=== PATIENT | male | born 1950 | race Caucasian/White ===

== ENCOUNTER 2017-08-12 06:10 | Day surgery (SDC) | payer MEDICARE, OTHER ==
[2017-08-11 14:45] LABS: BASOPHILS % (AUTO) 0.3 % (0-1); EOSINOPHILS # (AUTO) 0.3 X10'3 (0-0.9); EOSINOPHILS % (AUTO) 3.2 % (0-6); LYMPHOCYTES # (AUTO) 1.9 X10'3 (1.1-4.8); MEAN CORPUSCULAR HEMOGLOBIN 32.7 PG (27.0-31.0); MEAN CORPUSCULAR HGB CONC 35.8 % (33.0-36.5); MEAN CORPUSCULAR VOLUME 91.3 FL (78-98); MONOCYTES # (AUTO) 0.5 X10'3 (0-0.9); MONOCYTES % (AUTO) 6.1 % (2-12); NEUTROPHILS # (AUTO) 6.2 X10'3 (1.8-7.7); NEUTROPHILS % (AUTO) 69.4 % (42-75); PRE OP HEMATOCRIT 42.4 % (42.0-52.0); PRE OP HEMOGLOBIN 15.2 g/dL (14.0-17.9); PRE OP PLATELET COUNT 263 X10'3 (140-440); RED BLOOD COUNT 4.64 X10'6 (4.70-6.10); RED CELL DISTRIBUTION WIDTH 12.9 % (11.5-14.5)
[2017-08-11 14:55] LABS: ALBUMIN 3.1 G/DL (3.4-5.0); BLOOD UREA NITROGEN 17 MG/DL (7-18); BUN/CREATININE RATIO 18.9 (5.4-32.0); CALCIUM 9.2 MG/DL (8.5-10.1); CHLORIDE 103 MMOL/L (99-107); PRE OP ANION GAP 5 (8-16); PRE OP POTASSIUM 4.2 MMOL/L (3.4-5.1); PRE OP SODIUM 138 MMOL/L (135-145); TOTAL CARBON DIOXIDE 29.9 MMOL/L (24-32); eGFR 84 ML/MIN
[2017-08-11 14:56] LABS: PRE OP PROTIME 10.4 SECONDS (9.0-12.0)
[2017-08-11 15:05] LABS: PRE OP GLUCOSE 293 MG/DL (70-104)
[2017-08-12] VITALS (11 sets, daily range): BP systolic 141–192; BP diastolic 75–95
[~2017-08-12] VITALS: Ht 182.9 cm; Wt 82.8 kg
[~2017-08-12 06:10] MED LIST: CARV6.253 PO; CLOP75TA35 PO; GLIM4TAB79 PO; LISI10TA4 PO; OMEG500C PO
[2017-08-12] MEDS ORDERED: diphenhydrAMINE 25mg capsule PO PRN (06:35)
[2017-08-12] MEDS ORDERED: LORazepam 0.5 MG tablet PO PRN (06:35)
[2017-08-12] MEDS ORDERED: normal saline 1000ml 1,000 ML IV SCH (06:35)
[2017-08-12] MEDS ORDERED: CYAN-19 PO (06:40)
[2017-08-12] MEDS ORDERED: PIOG15TA8 PO (06:40)
[2017-08-12] MEDS ORDERED: TRAZ150T78 PO (06:40)
[2017-08-12] MEDS ORDERED: CITA20TA11 PO (06:40)
[2017-08-12] MEDS ORDERED: ASPI-1265 PO (06:40)
[2017-08-12] MEDS ORDERED: METF500T4 PO (06:40)
[2017-08-12] MEDS ORDERED: ATOR20TA66 PO (06:40)
[2017-08-12] MEDS ORDERED: midazolam 2 mg/2 ml injection ONE (07:08)
[2017-08-12] MEDS ORDERED: fentaNYL/PF 50MCG/1 ML 2ML syringe ONE (07:08)
[2017-08-12] MEDS ORDERED: iohexol 350MG/ML 100ml bottle IV ONE (07:09)
[2017-08-12] MEDS ORDERED: nitroGLYCERIN-Tridil 50MG/D5W 250 ML IV ONE (07:09)
[2017-08-12] MEDS ORDERED: heparin 1,000unit/ml 10ml vial 10 ML ONE (07:09)
[2017-08-12] MEDS ORDERED: iohexol 350 MG/ML 50ML vial IV ONE ×3 (07:09→08:04)
[2017-08-12] MEDS ORDERED: LIDOcaine 1%/PF (10mg/ml) 5ml vial ONE ×2 (07:09→08:06)
[2017-08-12] MEDS ORDERED: diltiazem 5mg/ml 5ml inj. IV ONE ×2 (07:49→07:50)
[2017-08-12] MEDS ORDERED: IOHEXOL 350 MG/ML 150 ML injection IV ONE (07:51)
[2017-08-12] MEDS ORDERED: hydrALAZINE 20mg/ml inj. IV ONE (08:36)
[2017-08-12 08:46] LABS: ISTAT HGB ART 12.6 g/dl (14.0-18.0); ISTAT Hct ART 37 %PCV (42-52); ISTAT Hct MIX 37 %PCV (42-52); ISTAT O2 SATURATION ARTERIAL 98 % (95-98); ISTAT O2 SATURATION MIX VENOUS 61 % (60-80); ISTAT SOURCE ART; ISTAT SOURCE MIX
== END 2017-08-12 13:55 | disposition home or self-care (01) ==
LOC: SSTAY O 06:10
PROVIDERS: ATTEND Internal Medicine Cardiovascular Disease
DX: I25.10 Atherosclerotic heart disease of native coronary artery without angina pectoris (principal); I25.2 Old myocardial infarction; E11.9 Type 2 diabetes mellitus without complications; I10 Essential (primary) hypertension; E78.5 Hyperlipidemia, unspecified; J44.9 Chronic obstructive pulmonary disease, unspecified; F17.210 Nicotine dependence, cigarettes, uncomplicated; M19.90 Unspecified osteoarthritis, unspecified site; Z95.5 Presence of coronary angioplasty implant and graft; Z79.01 Long term (current) use of anticoagulants
CPT/HCPCS: 36415; 75630; 80048; 82803; 82948; 85014; 85025; 85610; 85730; 93005; 93460; 99152; 99153; A6257; C1769; C1894; J0360; J1644; J2001; J2250; J3010; J3490; J7030; Q0163; Q9967; A4620

== ENCOUNTER 2019-03-24 05:49 | Day surgery (SDC) | payer MEDICARE, OTHER ==
[2019-03-23 13:16] LABS: BASOPHILS # (AUTO) 0.1 X10'3 (0-0.2); BASOPHILS % (AUTO) 0.9 % (0-1); EOSINOPHILS # (AUTO) 0.1 X10'3 (0-0.9); EOSINOPHILS % (AUTO) 1.8 % (0-6); HEMATOCRIT 45.7 % (42.0-52.0); HEMOGLOBIN 15.6 g/dl (14.0-17.9); LYMPHOCYTES # (AUTO) 1.2 X10'3 (1.1-4.8); LYMPHOCYTES % (AUTO) 15.3 % (21-51); MEAN CORPUSCULAR HEMOGLOBIN 31.6 PG (27.0-31.0); MEAN CORPUSCULAR VOLUME 92.8 FL (78-98); MEAN PLATELET VOLUME 8.7 FL (7.4-10.4); MONOCYTES # (AUTO) 0.7 X10'3 (0-0.9); MONOCYTES % (AUTO) 8.4 % (2-12); NEUTROPHILS # (AUTO) 5.7 X10'3 (1.8-7.7); NEUTROPHILS % (AUTO) 73.6 % (42-75); PLATELET COUNT 158 X10'3 (140-440); RED BLOOD COUNT 4.93 X10'6 (4.70-6.10); RED CELL DISTRIBUTION WIDTH 14.4 % (11.5-14.5); WHITE BLOOD COUNT 7.8 X10'3 (4.5-11.0)
[2019-03-23 13:29] LABS: PARTIAL THROMBOPLASTIN TIME 27 SECONDS (22-32)
[2019-03-23 13:45] LABS: ALBUMIN 2.1 G/DL (3.4-5.0); ANION GAP 5 (8-16); BLOOD UREA NITROGEN 16 MG/DL (7-18); BUN/CREATININE RATIO 16.8 (5.4-32.0); CALCIUM 8.5 MG/DL (8.5-10.1); CHLORIDE 102 MMOL/L (99-107); CREATININE 0.95 MG/DL (0.60-1.10); GLUCOSE 275 MG/DL (70-104); POTASSIUM 3.8 MMOL/L (3.5-5.1); SODIUM 138 MMOL/L (135-145); TOTAL CARBON DIOXIDE 31.4 MMOL/L (24-32); eGFR 78 ML/MIN
[2019-03-24] VITALS (12 sets, daily range): BP systolic 128–172; BP diastolic 84–119
[~2019-03-24] VITALS: Ht 182.9 cm; Wt 80.5 kg
[~2019-03-24 05:49] MED LIST changes: +ASPI-1265 PO; +ATOR20TA66 PO; +CITA20TA28 PO; +CYAN-51 PO; +GLIM4TAB4 PO; -GLIM4TAB79 PO; +METF-436 PO; -OMEG500C PO; +PIOG15TA8 PO; +TRAZ150T78 PO
[2019-03-24] MEDS ORDERED: normal saline 1,000 ML IV SCH (06:10)
[2019-03-24] MEDS ORDERED: LORazepam 0.5 MG tablet PO PRN (06:10)
[2019-03-24] MEDS ORDERED: diphenhydrAMINE 25mg capsule PO PRN (06:10)
[2019-03-24] MEDS ORDERED: HYDR12.55 PO (07:06)
[2019-03-24] MEDS ORDERED: APIX5TAB3 PO (07:06)
[2019-03-24] MEDS ORDERED: verapamil 2.5 mg/ml inj IV ONE (07:26)
[2019-03-24] MEDS ORDERED: heparin 1,000unit/ml 10ml vial 10 ML ONE ×2 (07:27→09:45)
[2019-03-24] MEDS ORDERED: fentaNYL/PF 50MCG/1 ML 2ML syringe ONE (07:27)
[2019-03-24] MEDS ORDERED: midazolam 2 mg/2 ml injection ONE (07:27)
[2019-03-24] MEDS ORDERED: nitroGLYCERIN-Tridil 50MG/D5W 250 ML IV ONE (07:27)
[2019-03-24] MEDS ORDERED: iohexol 350 MG/ML 50ML vial IV ONE (07:27)
[2019-03-24] MEDS ORDERED: iohexol 350MG/ML 100ml bottle IV ONE ×2 (07:27→09:00)
[2019-03-24] MEDS ORDERED: LIDOcaine 1% (10mg/ml)w/preservative injection 20ml MDV ONE (07:36)
[2019-03-24] MEDS ORDERED: metoprolol tartrate 1mg/ml inj IV ONE (08:29)
[2019-03-24 08:56] LABS: ISTAT Hct MIX 41 %PCV (42-52); ISTAT O2 SATURATION MIX VENOUS 60 % (60-80); ISTAT SOURCE MIX
[2019-03-24 08:56] LABS: ISTAT HGB ART 14.6 g/dl (14.0-18.0); ISTAT Hct ART 43 %PCV (42-52); ISTAT O2 SATURATION ARTERIAL 89 % (95-98); ISTAT SOURCE ART
[2019-03-24] MEDS ORDERED: heparin 25,000 UNIT/250ml bag 250 ML IV ONE (09:00)
[2019-03-24] MEDS ORDERED: clopidogrel 300mg tablet ONE (09:38)
[2019-03-24] MEDS ORDERED: normal saline 1000ml 1,000 ML IV SCH (10:25)
[2019-03-24] MEDS ORDERED: furosemide 20 MG/2 ML vial IV ONE (13:00)
[2019-03-24] MEDS ORDERED: potassium Cl 20 mEq SR tablet PO ONE (13:00)
== END 2019-03-24 16:55 | disposition home or self-care (01) ==
LOC: SSTAY O 05:49
PROVIDERS: ATTEND Internal Medicine Cardiovascular Disease
DX: R93.1 Abnormal findings on diagnostic imaging of heart and coronary circulation (principal); I25.10 Atherosclerotic heart disease of native coronary artery without angina pectoris; J44.9 Chronic obstructive pulmonary disease, unspecified; E11.9 Type 2 diabetes mellitus without complications; M19.90 Unspecified osteoarthritis, unspecified site; I48.3 Typical atrial flutter; I42.0 Dilated cardiomyopathy; I11.0 Hypertensive heart disease with heart failure; I50.22 Chronic systolic (congestive) heart failure; E78.49 Other hyperlipidemia; I25.2 Old myocardial infarction; Z95.5 Presence of coronary angioplasty implant and graft; Z98.890 Other specified postprocedural states; F17.210 Nicotine dependence, cigarettes, uncomplicated; Z79.899 Other long term (current) drug therapy; Z79.84 Long term (current) use of oral hypoglycemic drugs; Z79.01 Long term (current) use of anticoagulants
CPT/HCPCS: 36415; 80048; 82803; 82948; 83880; 85014; 85025; 85347; 85610; 85730; 93005; 93460; 99152; 99153; C1725; C1769; C1874; C1892; C1894; C9600; J1644; J1940; J2001; J2250; J3010; J7030; Q0163; Q9967; 93458; A4620; A5120; J3490

== ENCOUNTER 2019-06-27 11:04 | Emergency (ER) | payer MEDICARE, OTHER ==
[~2019-06-27] VITALS: Ht 182.9 cm; Wt 92.5 kg
[~2019-06-27 11:04] MED LIST changes: +APIX5TAB3 PO; -CARV6.253 PO; -CITA20TA28 PO; -CLOP75TA35 PO; -CYAN-51 PO; +HYDR12.55 PO; -PIOG15TA8 PO
[2019-06-27 11:54] LABS: BASOPHILS # (AUTO) 0.1 X10'3 (0-0.2); BASOPHILS % (AUTO) 1.1 % (0-1); EOSINOPHILS # (AUTO) 0.1 X10'3 (0-0.9); EOSINOPHILS % (AUTO) 0.9 % (0-6); HEMATOCRIT 46.5 % (42.0-52.0); HEMOGLOBIN 15.5 g/dl (14.0-17.9); LYMPHOCYTES # (AUTO) 0.8 X10'3 (1.1-4.8); LYMPHOCYTES % (AUTO) 8.5 % (21-51); MEAN CORPUSCULAR HEMOGLOBIN 31.8 PG (27.0-31.0); MEAN CORPUSCULAR HGB CONC 33.3 g/dL (33.0-36.5); MEAN CORPUSCULAR VOLUME 95.3 FL (78-98); MEAN PLATELET VOLUME 9.3 FL (7.4-10.4); MONOCYTES # (AUTO) 0.8 X10'3 (0-0.9); MONOCYTES % (AUTO) 8.3 % (2-12); NEUTROPHILS # (AUTO) 7.6 X10'3 (1.8-7.7); NEUTROPHILS % (AUTO) 81.2 % (42-75); PLATELET COUNT 243 X10'3 (140-440); RED BLOOD COUNT 4.88 X10'6 (4.70-6.10); WHITE BLOOD COUNT 9.4 X10'3 (4.5-11.0)
[2019-06-27 12:07] LABS: ALANINE AMINOTRANSFERASE 23 U/L (12-78); ALBUMIN/GLOBULIN RATIO 0.5 (1.1-1.5); ALKALINE PHOSPHATASE 228 IU/L (46-116); ANION GAP 1 (8-16); ASPARTATE AMINO TRANSFERASE 23 U/L (10-37); BILIRUBIN,TOTAL 0.9 MG/DL (0.1-1.0); BLOOD UREA NITROGEN 24 MG/DL (7-18); BUN/CREATININE RATIO 20.7 (5.4-32.0); CALCIUM 8.8 MG/DL (8.5-10.1); CHLORIDE 101 MMOL/L (99-107); CREATININE 1.16 MG/DL (0.60-1.10); GLUCOSE 239 MG/DL (70-104); POTASSIUM 4.4 MMOL/L (3.5-5.1); SODIUM 136 MMOL/L (135-145); TOTAL CARBON DIOXIDE 34.2 MMOL/L (24-32); TOTAL PROTEIN 6.2 G/DL (6.4-8.2); eGFR 62 ML/MIN
[2019-06-27] MEDS ORDERED: potassium Cl 20 mEq SR tablet PO STA (13:06)
[2019-06-27] MEDS ORDERED: furosemide 10 MG/1 ML 10ml inj IV ONE (13:10)
[2019-06-27] MEDS ORDERED: ALPRAZolam 0.25mg tablet PO ONE (13:10)
[2019-06-27 14:39] LABS: CLARITY,URINE CLEAR (Clear); COLOR,URINE YELLOW (Yellow); GLUCOSE, URINE NEGATIVE (Neg); KETONES,URINE NEGATIVE (Neg); LEUKOCYTE ESTERASE ,URINE NEGATIVE (Neg); NITRITES, URINE NEGATIVE (Neg); OCCULT BLOOD,URINE SMALL (Neg); PROTEIN,URINE >=300 mg/dl (Neg); UROBILINOGEN,URINE 0.2 E.U/dL (0.2-1.0)
[2019-06-27 14:44] LABS: UA COLLECTION TYPE CLN CATCH MIDSTREAM
[2019-06-27 14:51] LABS: SQUAMOUS EPITHELIAL CELL,UR NONE SEEN /LPF (FEW); TRANSITIONAL EPI CELLS,URINE FEW /HPF
[2019-06-27] MEDS ORDERED: DOXY-327 PO (14:51)
[2019-06-27 14:52] LABS: BACTERIA,URINE NONE SEEN /HPF (Neg); MUCUS STRANDS NONE SEEN /LPF (Neg); RBC,URINE 0-2 /HPF (0-2); WBC,URINE 0-4 /HPF (0-4)
[2019-06-27 14:59] LABS: HYALINE CASTS 0-3 /LPF (NEGATIVE)
[2019-06-27 15:04] VITALS: BP 133/82
== END 2019-06-27 15:08 | disposition home or self-care (01) ==
LOC: ER 11:05
DX: J18.9 Pneumonia, unspecified organism (principal); I50.9 Heart failure, unspecified; Z79.82 Long term (current) use of aspirin; Z79.899 Other long term (current) drug therapy
CPT/HCPCS: 36415; 71045; 80053; 81001; 83880; 84484; 85025; 93005; 96374; 99284; J1940

== ENCOUNTER 2020-08-06 08:46 | Observation (INO) | payer MEDICARE, OTHER ==
[2020-08-03 12:09] LABS: BASOPHILS % (AUTO) 0.7 % (0-1); EOSINOPHILS # (AUTO) 0.2 X10'3 (0-0.9); EOSINOPHILS % (AUTO) 2.7 % (0-6); HEMATOCRIT 37.4 % (42.0-52.0); HEMOGLOBIN 11.9 g/dl (14.0-17.9); LYMPHOCYTES # (AUTO) 0.6 X10'3 (1.1-4.8); LYMPHOCYTES % (AUTO) 8.5 % (21-51); MEAN CORPUSCULAR HEMOGLOBIN 29.2 PG (27.0-31.0); MEAN CORPUSCULAR HGB CONC 31.7 g/dL (33.0-36.5); MEAN CORPUSCULAR VOLUME 92.2 FL (78-98); MEAN PLATELET VOLUME 9.5 FL (7.4-10.4); MONOCYTES # (AUTO) 0.8 X10'3 (0-0.9); MONOCYTES % (AUTO) 11.9 % (2-12); NEUTROPHILS % (AUTO) 76.2 % (42-75); PLATELET COUNT 157 X10'3 (140-440); RED BLOOD COUNT 4.06 X10'6 (4.70-6.10); RED CELL DISTRIBUTION WIDTH 18.8 % (11.5-14.5); WHITE BLOOD COUNT 6.5 X10'3 (4.5-11.0)
[2020-08-03 12:18] LABS: ALBUMIN 2.8 G/DL (3.4-5.0); ANION GAP 5 (8-16); BLOOD UREA NITROGEN 50 MG/DL (7-18); BUN/CREATININE RATIO 26.5 (5.4-32.0); CALCIUM 8.7 MG/DL (8.5-10.1); CHLORIDE 100 MMOL/L (99-107); CREATININE 1.89 MG/DL (0.60-1.10); GLUCOSE 171 MG/DL (70-104); POTASSIUM 3.3 MMOL/L (3.5-5.1); SODIUM 141 MMOL/L (135-145); TOTAL CARBON DIOXIDE 35.8 MMOL/L (24-32); eGFR 35 ML/MIN
[2020-08-03 12:21] LABS: PARTIAL THROMBOPLASTIN TIME 28 SECONDS (22-32)
[2020-08-03 12:43] LABS: ANISOCYTOSIS 2+; HYPOCHROMASIA 1+; PLATELET ESTIMATE NORMAL; STOMATOCYTES 1+
[2020-08-06] VITALS (15 sets, daily range): BP systolic 98–175; BP diastolic 52–116
[~2020-08-06] VITALS: Ht 182.9 cm; Wt 72.7 kg
[~2020-08-06 08:46] MED LIST changes: +DOXY-327 PO; -GLIM4TAB4 PO; +GLIM4TAB7 PO
[2020-08-06] MEDS ORDERED: normal saline 1000ml 1,000 ML IV SCH ×2 (09:15→17:35)
[2020-08-06] MEDS ORDERED: ceFAZolin 2gm in dextrose, iso 50 ML IV ONE ×2 (09:15→13:05)
[2020-08-06] MEDS ORDERED: diphenhydrAMINE 25mg capsule PO ONE (09:45)
[2020-08-06] MEDS ORDERED: LORazepam 0.5 MG tablet PO ONE (09:45)
[2020-08-06] MEDS ORDERED: DOBUTamine 2000 MCG/250ML BAG IV SCH ×2 (09:50→17:35)
[2020-08-06] MEDS ORDERED: sodium bicarbonate (8.4%) inj. 150 MEQ in dextrose 5%-water 1,000 ML IV ONE (09:55)
[2020-08-06] MEDS ORDERED: CLOP75TA15 PO (10:00)
[2020-08-06] MEDS ORDERED: SPIR25TA5 PO (10:00)
[2020-08-06] MEDS ORDERED: BENZ-16 PO (10:00)
[2020-08-06] MEDS ORDERED: FLO0.4C PO (10:00)
[2020-08-06] MEDS ORDERED: HYDR-3972 PO (10:00)
[2020-08-06] MEDS ORDERED: ATOR80TA PO (10:00)
[2020-08-06] MEDS ORDERED: METO50TA7 PO (10:00)
[2020-08-06] MEDS ORDERED: LISI-600 PO (10:00)
[2020-08-06] MEDS ORDERED: FURO-149 PO (10:00)
[2020-08-06] MEDS: acetylcysteine 200 MG/ml 4ml vial PO SCH ×2 (10:55→21:00)
[2020-08-06] MEDS ORDERED: LIDOcaine 1% W/epiNEPHrine 1:100,000 20ml vial ONE ×2 (11:25→13:27)
[2020-08-06] MEDS ORDERED: midazolam 2 mg/2 ml injection ONE ×2 (11:25→13:05)
[2020-08-06] MEDS ORDERED: ceFAZolin 1000mg inj ONE ×2 (11:25→13:05)
[2020-08-06] MEDS ORDERED: iohexol 350MG/ML 100ml bottle IV ONE (11:25)
[2020-08-06] MEDS ORDERED: fentaNYL/PF 50MCG/1 ML 2ML syringe ONE ×2 (11:25→13:05)
[2020-08-06] MEDS ORDERED: magnesium 2GM in 50ml NS 50 ML IV ONE (11:45)
[2020-08-06] MEDS ORDERED: iohexol 350 MG/ML 50ML vial IV ONE (13:05)
[2020-08-06] MEDS ORDERED: HYDROmorphone 1 mg/ml syringe ONE (14:14)
[2020-08-06] MEDS ORDERED: HYDROcodone/acetaminophen 10/325mg tab PO PRN (17:30)
[2020-08-06] MEDS ORDERED: hydrALAZINE 20mg/ml inj. IV PRN (17:30)
[2020-08-06] MEDS ORDERED: HYDROcodone/acetaminophen 5mg/325mg tablet PO PRN (17:45)
--- NOTE | 2020-08-06 18:43 | NUR ---
Problems reprioritized. Patient report given, questions answered & plan of care reviewed with CATHY Sheffield, I will be taking to to room #1201L shortly.
[2020-08-06] MEDS ORDERED: vancomycin/NS 1 GM ADD-VANTAGE 250 ML IV ONE (19:00)
--- NOTE | 2020-08-06 19:30 | NUR ---
pt in room 3013B, VSS, pt is in stable condition, pt is in no distress at this time, pt's RN Nettie at pts' bedside.
[2020-08-06] MEDS: HYDROcodone/acetaminophen 10/325mg tab PO PRN (19:37)
[2020-08-06] MEDS ORDERED: carVEDilol 12.5mg tablet PO ONE (19:50)
[2020-08-06] MEDS ORDERED: atorvastatin 20mg tablet PO SCH (21:00)
[2020-08-06] MEDS ORDERED: traZODone 150mg tablet PO SCH (21:00)
[2020-08-06] MEDS: furosemide 40mg tablet PO SCH (21:01)
[2020-08-06] MEDS: benzonatate 100mg capsule PO SCH (21:02)
[2020-08-06] MEDS: morphine 2 MG/ML inj. syringe IV PRN (22:31)
[2020-08-07] MEDS: HYDROcodone/acetaminophen 10/325mg tab PO PRN ×3 (00:07→09:30)
[2020-08-07 00:45] VITALS: BP 148/80
[2020-08-07] MEDS: morphine 2 MG/ML inj. syringe IV PRN ×3 (01:32→06:32)
[2020-08-07 02:00] VITALS: BP 145/85
--- NOTE | 2020-08-07 06:14 | NUR ---
Problems reprioritized. Patient report given, questions answered & plan of care reviewed with Salima MORGAN and Mary Kay RN.
[2020-08-07 07:00] VITALS: BP 130/76
[2020-08-07] MEDS ORDERED: DOBUTamine 2000 MCG/250ML BAG IV SCH (07:00)
[2020-08-07 07:21] LABS: BASOPHILS # (AUTO) 0.1 X10'3 (0-0.2); BASOPHILS % (AUTO) 0.4 % (0-1); EOSINOPHILS # (AUTO) 0.1 X10'3 (0-0.9); EOSINOPHILS % (AUTO) 0.7 % (0-6); LYMPHOCYTES # (AUTO) 0.5 X10'3 (1.1-4.8); LYMPHOCYTES % (AUTO) 3.8 % (21-51); MEAN CORPUSCULAR HEMOGLOBIN 28.7 PG (27.0-31.0); MEAN CORPUSCULAR HGB CONC 31.5 g/dL (33.0-36.5); MEAN CORPUSCULAR VOLUME 91.2 FL (78-98); MEAN PLATELET VOLUME 9.9 FL (7.4-10.4); MONOCYTES # (AUTO) 1.2 X10'3 (0-0.9); MONOCYTES % (AUTO) 9.9 % (2-12); NEUTROPHILS # (AUTO) 10.5 X10'3 (1.8-7.7); NEUTROPHILS % (AUTO) 85.2 % (42-75); PLATELET COUNT 124 X10'3 (140-440); RED BLOOD COUNT 3.84 X10'6 (4.70-6.10); RED CELL DISTRIBUTION WIDTH 19.7 % (11.5-14.5); WHITE BLOOD COUNT 12.4 X10'3 (4.5-11.0)
[2020-08-07 07:46] LABS: ALBUMIN 2.7 G/DL (3.4-5.0); ANION GAP 6 (8-16); BLOOD UREA NITROGEN 45 MG/DL (7-18); BUN/CREATININE RATIO 31.7 (5.4-32.0); CALCIUM 8.5 MG/DL (8.5-10.1); CHLORIDE 99 MMOL/L (99-107); CREATININE 1.42 MG/DL (0.60-1.10); GLUCOSE 235 MG/DL (70-104); SODIUM 139 MMOL/L (135-145); TOTAL CARBON DIOXIDE 34.2 MMOL/L (24-32); eGFR 49 ML/MIN
[2020-08-07 07:55] LABS: POTASSIUM 2.6 MMOL/L (3.5-5.1)
[2020-08-07] MEDS ORDERED: carVEDilol 12.5mg tablet PO SCH (08:00)
[2020-08-07] MEDS ORDERED: lisinopril 20mg tablet PO SCH (08:00)
[2020-08-07] MEDS ORDERED: amiodarone 200mg tablet PO SCH (08:00)
[2020-08-07] MEDS ORDERED: aspirin 81mg tab.chew PO SCH (08:00)
[2020-08-07] MEDS: acetylcysteine 200 MG/ml 4ml vial PO SCH (08:00)
[2020-08-07] MEDS ORDERED: metoprolol succinate 25mg (24-HOUR) SR. Tablet PO SCH (08:00)
[2020-08-07] MEDS ORDERED: spironolactone 25 MG tablet PO SCH (08:00)
[2020-08-07] MEDS ORDERED: tamsulosin 0.4mg capsule PO SCH (08:00)
[2020-08-07] MEDS ORDERED: magnesium Cl slow-release 64mg tablet PO PRN (08:05)
[2020-08-07] MEDS ORDERED: magnesium 4gm in 100ml NS 100 ML IV PRN (08:05)
[2020-08-07] MEDS ORDERED: potassium Cl 40MEQ/1/2NS 520ml 520 ML IV PRN (08:05)
[2020-08-07] MEDS ORDERED: potassium Cl 20 mEq SR tablet PO PRN ×2 (08:05)
--- NOTE | 2020-08-07 08:12 | NUR ---
CRITICAL LAB VALUE TAKEN, REPORTED TO PRIMARY RN.
[2020-08-07] MEDS: benzonatate 100mg capsule PO SCH (08:47)
[2020-08-07] MEDS: furosemide 40mg tablet PO SCH (08:48)
[2020-08-07 09:02] LABS: ANISOCYTOSIS 2+; PLATELET ESTIMATE DECREASED
[2020-08-07 09:04] LABS: STOMATOCYTES FEW
[2020-08-07] MEDS ORDERED: dextrose ORAL solution 15 GM/59 ML bottle PO PRN ×2 (09:05)
[2020-08-07] MEDS ORDERED: glucagon, human recombinant 1mg kit SUBCUT PRN (09:05)
[2020-08-07] MEDS ORDERED: insulin Lispro (HumaLOG) vial - multi-dose SQ SCH (09:05)
[2020-08-07] MEDS ORDERED: dextrose 50%-water 50ml dispensing syringe IV PRN ×2 (09:05)
[2020-08-07] MEDS ORDERED: MESSAGE TO PHARMACY PO ONE (09:05)
[2020-08-07 09:20] LABS: MAGNESIUM 2.1 MG/DL (1.5-2.4)
[2020-08-07 09:23] LABS: HEMOGLOBIN A1C 7.6 % (4.5-6.2)
[2020-08-07 11:00] VITALS: BP 94/67
[2020-08-07 13:14] VITALS: BP 83/50
--- NOTE | 2020-08-07 13:14 | NUR ---
Pt hypotensive 83/50, informed Dr. Ascencio. Order for 250 cc bolus and discharge Coreg will be reduced by half. Will continue to monitor.
[2020-08-07] MEDS ORDERED: CARV12.5 PO (13:43)
[2020-08-07] MEDS ORDERED: LISI10TA4 PO (13:43)
[2020-08-07] MEDS ORDERED: AMIO200T61 PO (13:44)
[2020-08-07] MEDS ORDERED: CEPH250T PO (13:47)
--- NOTE | 2020-08-07 15:53 | NUR ---
Pt stable for discharge per MD order. All discharge instructions reviewed with patient and all questions answered. PIV disconnected, cannula intact. Telemetry disconnected, telegraph equipment maintainer notified. All belongings collected and sent with patient. New prescriptions faxed into pharmacy. Patient picked up by family member in private vehicle. Wheeled to lobby by staff.
[2020-08-07] MEDS ORDERED: K and/or MAG REPLACEMENT MC SCH (20:00)
[2020-08-07] MEDS ORDERED: insulin glargine (Lantus) pen - multi-dose SQ SCH (21:00)
--- NOTE | 2020-08-08 14:28 | NUR ---
CASE MANAGEMENT DISCHARGE FOLLOW UP: Spoke with pt via telephone. Pt reports that he is feeling well, denies CP, dizziness, SOB/difficulty breathing. Verbalizes understanding of s/sx requiring further evaluation/emergent assistance. Pt verbalizes understanding of new, current and stopped medications. Pt verbalizes compliance with MD discharge instructions. Pt verbalizes understanding of the importance in making/keeping follow-up appointments. Pt states no further questions/concerns at this time.
[2020-08-09] MEDS ORDERED: clopidogrel 75mg tablet PO SCH (08:00)
== END 2020-08-07 15:32 | disposition home or self-care (01) ==
LOC: SSTAY O 08:46 → PCU 3S 20:26
PROVIDERS: ADMIT Internal Medicine Cardiovascular Disease; ATTEND Internal Medicine Cardiovascular Disease
DX: I42.0 Dilated cardiomyopathy (principal); I11.0 Hypertensive heart disease with heart failure; I50.22 Chronic systolic (congestive) heart failure; I48.3 Typical atrial flutter; I47.2 Ventricular tachycardia; E78.5 Hyperlipidemia, unspecified; E11.9 Type 2 diabetes mellitus without complications; J44.9 Chronic obstructive pulmonary disease, unspecified; Z95.5 Presence of coronary angioplasty implant and graft; Z79.82 Long term (current) use of aspirin; Z79.899 Other long term (current) drug therapy
CPT/HCPCS: 33225; 33249; 36415; 71046; 80048; 82948; 83036; 83735; 83880; 84132; 85008; 85025; 85610; 85730; 87081; 93005; 96365; 96366; 96367; 96368; 96375; 96376; C1769; C1882; C1887; C1895; C1900; G0378; J0360; J0690; J1170; J1250; J1815; J2250; J2270; J3010; J3370; J3475; J7030; Q0163; Q9967; 99152; 99153; A4565; A4620; A6258; A6449; C1894